=== PATIENT | female | born 1955 | race Caucasian/White ===

== ENCOUNTER → 2022-02-09 | Outpatient (CLI) | payer MEDICARE, BC ==
[~2022-02-09] VITALS: Ht 170.2 cm; Wt 73.0 kg
[~2022-02-09] MED LIST: BENZTROPINE ME0.5 MG PO; CARVEDILOL3.125 MG PO; CRESTOR 10 MG T10 MG GT; CYCLOBENZAPRINE10 MG PO; FLONASE 0.05% N16 GM; HYDROXYZINE PAM25 MG PO; JANUMET XR 50-1 EACH PO; JARDIANCE10 MG PO; K-TAB ER10 MEQ PO; LASIX 40 MG TAB40 MG PO; LIDOCAINE 5%; LISINOPRIL2.5 MG PO; MELOXICAM7.5 MG PO; MODAFINIL200 MG PO; MOTEGRITY2 MG PO; OLANZAPINE10 MG PO; PANTOPRAZOLE SO20 MG PO; PREGABALIN200 MG PO; THEOPHYLLINE A450 MG PO; TYLENOL EXTRA500 MG PO; VENLAFAXINE HCL75 M2 PO; XALATAN2.5 ML OP
[2022-02-09 14:12] LABS: HEMOGLOBIN 11.3 gm/dl (12.3-15.3); RED BLOOD COUNT 4.01 M/UL (4.00-5.10); WHITE BLOOD COUNT 5.5 K/UL (4.5-11.0)
== END ==
LOC: EDSTATUS 12:30 → OPSV2 12:30
PROVIDERS: Orthopaedic Surgery
DX: Z01.818 Encounter for other preprocedural examination (principal); M17.12 Unilateral primary osteoarthritis, left knee; R91.1 Solitary pulmonary nodule
CPT/HCPCS: 36415; 71046; 80048; 85025; 93005

== ENCOUNTER → 2022-02-23 | Outpatient (CLI) | payer MEDICARE, BC ==
[~2022-02-23] MED LIST changes: -CRESTOR 10 MG T10 MG GT; +CRESTOR 10 MG T10 MG PO; -PANTOPRAZOLE SO20 MG PO; +PROTONIX40 MG PO
== END ==
LOC: RAD 15:14
PROVIDERS: Orthopaedic Surgery
DX: Z01.818 Encounter for other preprocedural examination (principal); M16.12 Unilateral primary osteoarthritis, left hip; M25.552 Pain in left hip
CPT/HCPCS: 36415; 71046; 80048; 86850; 86900; 86901; 86920

== ENCOUNTER 2022-02-24 07:29 | Inpatient (IN) | payer MEDICARE, BC ==
[~2022-02-24] VITALS: Ht 170.2 cm; Wt 85.5 kg
[2022-02-25 07:38] LABS: HEMOGLOBIN 7.6 gm/dl (12.3-15.3); RED BLOOD COUNT 2.82 M/UL (4.00-5.10); WHITE BLOOD COUNT 5.9 K/UL (4.5-11.0)
[2022-02-25 14:43] LABS: HEMOGLOBIN 8.8 gm/dl (12.3-15.3); WHITE BLOOD COUNT 8.1 K/UL (4.5-11.0)
--- NOTE | 2022-02-25 15:36 | NUR ---
DR. KEN NOTIFIED AT 1352 OF PATIENT CONDITION WORSENING. I STATED TO DR. KEN THAT THE PATIENT HAS LOW BLOOD PRESSURE AND THAT SHE WAS WEAK, PALE AND NOT ACTING LIKE SHE WAS EARLIER IN THE DAY. AT THAT TIME THE PATINT WAS ABLE TO ANSWER QUESTIONS. AT 1358 I WAS AT THE PATIENTS BEDSIDE AND SHE WAS NOT ABLE TO RESPOND TO MY COMMANDS. SHE HAS RIGHT SIDED FACIAL DROOPING AND WAS UNABLE TO SMILE OR STICK OUT HER TOUNG. DR. KEN RESPONDED TO THE FIXED ROUTE BUS OPERATOR AND PATIENT WAS TRANSFERED TO ICU. PATIENT HAD TEDHOSE ON AND A 20 GAUGE IN THE RIGHT AC AND RIGHT HAND.
[2022-02-25 19:11] LABS: HEMOGLOBIN 7.4 gm/dl (12.3-15.3)
[2022-02-25 22:59] LABS: HEMOGLOBIN 7.3 gm/dl (12.3-15.3)
[2022-02-26 04:24] LABS: HEMOGLOBIN 7.6 gm/dl (12.3-15.3); WHITE BLOOD COUNT 7.3 K/UL (4.5-11.0)
[2022-02-26 04:51] LABS: RED BLOOD COUNT 2.65 M/UL (4.00-5.10)
[2022-02-26 15:57] LABS: HEMOGLOBIN 7.3 gm/dl (12.3-15.3)
[2022-02-27 04:08] LABS: HEMOGLOBIN 7.5 gm/dl (12.3-15.3); RED BLOOD COUNT 2.63 M/UL (4.00-5.10); WHITE BLOOD COUNT 6.8 K/UL (4.5-11.0)
[2022-02-27 04:30] LABS: BUN/CREATININE RATIO 21 (0-10)
[2022-02-28 06:48] LABS: HEMOGLOBIN 7.7 gm/dl (12.3-15.3); RED BLOOD COUNT 2.68 M/UL (4.00-5.10); WHITE BLOOD COUNT 6.9 K/UL (4.5-11.0)
[2022-02-28 07:44] LABS: BUN/CREATININE RATIO 19 (0-10)
[2022-02-28] MEDS ORDERED: HYDROCODON-ACE1 EAC6 PO (12:06)
--- NOTE | 2022-02-28 15:20 | NUR ---
bladder training started approx 12:00 noon.
--- NOTE | 2022-02-28 15:22 | NUR ---
informed housekeeping worker Felix gonzalez of patient needing call davila in his room. work order made by phillip wine steward.
--- NOTE | 2022-02-28 16:36 | NUR ---
performed bladder training prior to mcleod catherer removal
[2022-03-01 02:42] LABS: HEMOGLOBIN 7.8 gm/dl (12.3-15.3); RED BLOOD COUNT 2.77 M/UL (4.00-5.10); WHITE BLOOD COUNT 6.8 K/UL (4.5-11.0)
[2022-03-01 03:17] LABS: BUN/CREATININE RATIO 21 (0-10)
[2022-03-01] MEDS ORDERED: ELIQUIS 2.5 MG2.5 MG PO (09:21)
== END 2022-03-01 12:18 | disposition home health service (06) | DRG 469 ==
LOC: OR 07:29 → M/S 19:52 → OR 19:52 → CCU 02-25 14:17 → M/S 02-25 14:17 → CCU 02-25 14:33 → M/S 02-27 13:55
PROVIDERS: Internal Medicine; Internal Medicine Critical Care Medicine; ADMIT Orthopaedic Surgery
PROC: 0SRB0JA Replacement of Left Hip Joint with Synthetic Substitute, Uncemented, Open Approach (ICD-10-PCS; 2022-02-24)
PROC: 0QP704Z Removal of Internal Fixation Device from Left Upper Femur, Open Approach (ICD-10-PCS; 2022-02-24)
PROC: 3E043XZ Introduction of Vasopressor into Central Vein, Percutaneous Approach (ICD-10-PCS; principal; 2022-02-25)
PROC: 30233N1 Transfusion of Nonautologous Red Blood Cells into Peripheral Vein, Percutaneous Approach (ICD-10-PCS; 2022-02-25)
PROC: 5A09357 Assistance with Respiratory Ventilation, Less than 24 Consecutive Hours, Continuous Positive Airway Pressure (ICD-10-PCS; 2022-02-26)
PROC: 5A09357 Assistance with Respiratory Ventilation, Less than 24 Consecutive Hours, Continuous Positive Airway Pressure (ICD-10-PCS; 2022-02-28)
PROC: 5A09357 Assistance with Respiratory Ventilation, Less than 24 Consecutive Hours, Continuous Positive Airway Pressure (ICD-10-PCS; 2022-03-01)
DX: M16.12 Unilateral primary osteoarthritis, left hip (principal); R57.1 Hypovolemic shock; D62 Acute posthemorrhagic anemia; Z20.822 Contact with and (suspected) exposure to COVID-19; G93.40 Encephalopathy, unspecified; I13.0 Hypertensive heart and chronic kidney disease with heart failure and stage 1 through stage 4 chronic kidney disease, or unspecified chronic kidney disease; J96.12 Chronic respiratory failure with hypercapnia; J96.11 Chronic respiratory failure with hypoxia; I95.9 Hypotension, unspecified; T80.89XA Other complications following infusion, transfusion and therapeutic injection, initial encounter; M79.7 Fibromyalgia; I50.9 Heart failure, unspecified; N18.30 Chronic kidney disease, stage 3 unspecified; J44.9 Chronic obstructive pulmonary disease, unspecified; Y83.9 Surgical procedure, unspecified as the cause of abnormal reaction of the patient, or of later complication, without mention of misadventure at the time of the procedure; G47.33 Obstructive sleep apnea (adult) (pediatric); E78.5 Hyperlipidemia, unspecified; F41.9 Anxiety disorder, unspecified; F32.A Depression, unspecified; E11.22 Type 2 diabetes mellitus with diabetic chronic kidney disease; E87.5 Hyperkalemia; R26.9 Unspecified abnormalities of gait and mobility; R74.01 Elevation of levels of liver transaminase levels; G89.4 Chronic pain syndrome; K59.09 Other constipation; F17.210 Nicotine dependence, cigarettes, uncomplicated; Z99.81 Dependence on supplemental oxygen; Z88.5 Allergy status to narcotic agent; Z88.2 Allergy status to sulfonamides; Z88.6 Allergy status to analgesic agent; Z91.040 Latex allergy status; Z90.49 Acquired absence of other specified parts of digestive tract; Z98.890 Other specified postprocedural states; I25.2 Old myocardial infarction; Z82.3 Family history of stroke; Z80.3 Family history of malignant neoplasm of breast; Z87.01 Personal history of pneumonia (recurrent)
CPT/HCPCS: 36415; 36430; 36600; 70450; 71045; 71046; 72170; 73502; 76000; 80048; 80053; 81001; 82550; 82553; 82803; 82962; 83540; 83550; 83605; 83735; 84100; 84484; 85014; 85018; 85025; 85027; 86850; 86900; 86901; 86920; 93005; 93880; 94640; 94660; 94664; 94760; 97116; 97162; 97164; 97165; 97168; 97530; C1713; C1776; G0378; J0690; J1100; J1170; J1644; J1885; J2001; J2250; J2405; J2704; J2795; J3010; J7050; P9016; P9045